=== PATIENT | female | born 1950 | race Caucasian/White ===

== ENCOUNTER 2021-04-01 08:30 | Day surgery (SDC) | payer MEDICARE, SELFPAY ==
[2021-03-25 16:06] VITALS: BMI 23.6
--- NOTE | 2021-03-31 13:00 | HO.ANESPROP2 ---
Documented by User: Gayle Dennison NP 03/31/21 13:01 HPI - Anesthesia Eval Consult details Narrative: 70yo F for Colonoscopy Portacath R chest - chemo for CA of appendix (last dose 03/28/21) PMFSH Past Medical History Medical History (Updated 03/25/21 @ 16:04 by Urvashi Hall, RN) Cancer of appendix COVID-19 vaccine series completed GERD (gastroesophageal reflux disease) History of chemotherapy Port-A-Cath in place Surgical History Surgical History (Updated 03/25/21 @ 16:04 by Urvashi Hall RN) History of esophagogastroduodenoscopy (EGD) Hx laparoscopic cholecystectomy Hx of abdominal surgery Hx of colonoscopy Hx of hysterectomy Social History Social History Are you a primary home care rn to a significant other at home: No Do you presently have visiting nurse or other home services: No Patient Tobacco Use Status: Never used Tobacco Use of substances other than those prescribed or required for medical reasons: No Have you been hit, kicked, punched, or otherwise hurt by someone within the past year? If so, by whom?: No Are you DNR?: No Advance Directives: No Advance Directives Information Provided: No Advance Directives on File: No Recently lost weight without trying: No Eating poorly because of decreased appetite: No Patient : No Meds Allergies Allergy/AdvReac Type Severity Reaction Status Date / Time No Known Allergies Allergy Unverified 03/25/21 15:51 [No Known Allergies*] Home Medications Medication Instructions Recorded Confirmed Last Taken Type lorazepam 1 mg tablet 1 mg PO BEDTIME 03/25/21 03/25/21 Unknown History multivitamin 1 tab PO DAILY 03/25/21 03/25/21 Unknown History polyethylene glycol 3350 17 gram 17 g PO DAILY 03/25/21 03/25/21 Unknown History oral powder packet (Miralax) Exam Exam Date and Time: March 31, 2021 1300 Height,Weight and Vital Signs: Height 5 ft 1 in Weight 56.699 kg Assessment and Plan Assessment Anesthesia Assessment: Chart Reviewed Documented by User: Fabrizio Martinez MD 04/01/21 09:08 [facility] Past Medical History Medical History (Updated 03/25/21 @ 16:04 by Urvashi Hall, JOHNNY) Cancer of appendix COVID-19 vaccine series completed GERD (gastroesophageal reflux disease) History of chemotherapy Port-A-Cath in place Family History Family history of problems with anesthesia: No Surgical History Surgical History (Updated 03/25/21 @ 16:04 by Urvashi Hall, RN) History of esophagogastroduodenoscopy (EGD) Hx laparoscopic cholecystectomy Hx of abdominal surgery Hx of colonoscopy Hx of hysterectomy History of Problems with Anesthesia: No Social History Social History Are you a primary home care rn to a significant other at home: No Do you presently have visiting nurse or other home services: No Patient Tobacco Use Status: Never used Tobacco Use of substances other than those prescribed or required for medical reasons: No Have you been hit, kicked, punched, or otherwise hurt by someone within the past year? If so, by whom?: No Are you DNR?: No Advance Directives: No Advance Directives Information Provided: No Advance Directives on File: No Recently lost weight without trying: No Eating poorly because of decreased appetite: No Patient : No Meds Allergies Allergy/AdvReac Type Severity Reaction Status Date / Time No Known Allergies Allergy Unverified 03/25/21 15:51 [No Known Allergies*] Home Medications Medication Instructions Recorded Confirmed Last Taken Type lorazepam 1 mg tablet 1 mg PO BEDTIME 03/25/21 03/25/21 Unknown History multivitamin 1 tab PO DAILY 03/25/21 03/25/21 Unknown History polyethylene glycol 3350 17 gram 17 g PO DAILY 03/25/21 03/25/21 Unknown History oral powder packet (Miralax) Exam Airway Mallampati Class: II TM Dist: >3cm Neck ROM: Full Loose/Missing/Broken Teeth: No Heart: rrr+[id number] Lungs: cta b/l Assessment and Plan Assessment Anesthesia Assessment: Anesthesia Plan Discussed Final Anesthetic Review Family History of Problems with Anesthesia: No History of Problems with Anesthesia: No NPO: Yes ASA Class: III Final Preanesthetic Review: No Changes in Pt Med Stat, Meds/Allgs Chart Reviewed, Consent Obtained/Reviewed and Anes Risks/Benef Reviewed Patient Risk: Intermediate Procedure Risk: Low Assessment/Block/Sedation in SS: Assess/Block/Sedation-SS Anesthetic Plan Anesthetic Plan: MAC: and Agree w/ Assess. and Plan Disposition: Standard PACU
--- NOTE | 2021-03-31 19:14 | HP_ITS ---
DATE OF SERVICE: 04/01/2021 PROPOSED DATE OF SERVICE: 04/01/2021. 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 She has a history of peritoneal carcinomatosis and underwent surgery at [facility] with hyperthermic intraperitoneal chemotherapy. She has been maintained on chemotherapy every 2 weeks and is scheduled for surgery to remove a liver lesion and lymph nodes, based on most recent imaging. 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 She had upper endoscopy and colonoscopy in November of 2019 and is here for followup colonoscopy. PAST MEDICAL HISTORY: 1. Appendiceal carcinoma with peritoneal carcinomatosis and surgery as above. 2. Hysterectomy. 3. Cholecystectomy. CURRENT MEDICATIONS: Ativan, omeprazole. ALLERGIES: THERE ARE NONE REPORTED. FAMILY HISTORY: Noncontributory. SOCIAL HISTORY: There is no current tobacco, alcohol, or substance abuse. REVIEW OF SYSTEMS: SKIN: No pruritus. HEENT: Negative. CARDIOPULMONARY: No shortness of breath or chest pain. GASTROINTESTINAL: As above. GENITOURINARY: Negative. NEUROPSYCHIATRIC: Negative. PHYSICAL EXAMINATION: lungs: clear heart: normal s1 s2. abdomen: soft, nontender IMPRESSION: Appendiceal carcinoma. PLAN: Colonoscopy. Risks and benefits of the procedure have been discussed with the patient who understands and agrees to proceed. MD MARQUITA Khan/ROSITA / [id number] MTDD
[2021-04-01 08:55] VITALS: BP 139/64; PULSE 79; RESP 16; TEMP 36.6; O2SAT 100
[2021-04-01] MEDS: Lactated Ringers 1,000 ML 100 ML IVCONT (09:05)
--- NOTE | 2021-04-01 09:34 | MHC.SHP ---
Pre-Procedural Eval Section A Date of Service: 04/01/21 The patient is an INPATIENT: No Changes since office visit: No Cold of Flu in the past 2 weeks, No New Medical Problems, No Changes in Medication and No Patient answered all questions The History & Physical has been completed within 30 days and I have reviewed it.: Yes Section B Chief Complaint: neoplasm of appendix Allergies: Allergies Allergy/AdvReac Type Severity Reaction Status Date / Time No Known Allergies Allergy Unverified 03/25/21 15:51 [No Known Allergies*] Plan I have reviewed the history and physical and performed a pertinent physical examination on my patient. No changes have occurred unless specified.
[2021-04-01 10:10] VITALS: BP 86/34; PULSE 67; RESP 16; TEMP 36.2; O2SAT 99
[2021-04-01 10:15] VITALS: BP 108/55; PULSE 68; RESP 16; O2SAT 100
--- NOTE | 2021-04-01 10:17 | PM.OP ---
Brief Operative Note Date of Service: 04/01/21 Pre-op diagnosis: appendiceal carcinoma Post-op diagnosis: same Procedure: colonoscopy Surgeon: Luis Daniel Monaco Anesthesia: MAC Was an Recreation Attendant Supervisor used for this Procedure?: No Estimated blood loss (mL): 0 Pathology: none sent Condition: stable Disposition: PACU
[2021-04-01 10:25] VITALS: BP 104/49; PULSE 65; RESP 16; TEMP 36.2; O2SAT 100
--- NOTE | 2021-04-01 11:41 | OP_ITS ---
SURGEON: Luis Daniel Monaco MD INDICATIONS: Appendiceal carcinoma. PREOPERATIVE DIAGNOSIS: POSTOPERATIVE DIAGNOSIS: PROCEDURE PERFORMED: Colonoscopy to the neoterminal ileum. ESTIMATED BLOOD LOSS: COMPLICATIONS: ANESTHESIA: Monitored anesthesia care. ASSISTANTS: SPECIMENS: DESCRIPTION OF PROCEDURE: History and physical performed. The risks and benefits of the procedure were explained to the patient, and informed consent was obtained. The patient was placed in the left lateral decubitus position. A digital rectal exam was performed and it was found to be normal. The Olympus pediatric video colonoscope was introduced into the rectum and advanced to the ileocolonic anastomosis. Examination was performed. The scope was removed. She tolerated the procedure well and was taken to the recovery area in stable condition. FINDINGS: The neoterminal ileum was normal. There was a widely patent ileocolonic anastomosis at about 60 cm. There was no evidence of stricturing or malignancy. Some staple material was visible. The visualized colonic mucosa was normal without evidence of polyps, masses or ulcers. The quality of the prep was good. There was mild sigmoid diverticulosis. Retroflexed examination showed small internal hemorrhoids. IMPRESSION: Normal colonoscopy. RECOMMENDATIONS: 1. Follow up as needed. 2. Repeat colonoscopy could be considered in 3 years for surveillance purposes. MD MARQUITA Khan/ROSITA / [id number]
== END 2021-04-01 10:45 | disposition home or self-care (01) ==
PROVIDERS: Visit Provider Internal Medicine Gastroenterology
PROC: 0DJD8ZZ Inspection of Lower Intestinal Tract, Via Natural or Artificial Opening Endoscopic (ICD-10-PCS; CPT 45378; principal; 2021-04-01 09:30)
DX: C18.1 Malignant neoplasm of appendix (principal); C78.6 Secondary malignant neoplasm of retroperitoneum and peritoneum; K57.30 Diverticulosis of large intestine without perforation or abscess without bleeding; K64.8 Other hemorrhoids; K21.9 Gastro-esophageal reflux disease without esophagitis; Z79.899 Other long term (current) drug therapy; Z92.21 Personal history of antineoplastic chemotherapy; Z98.0 Intestinal bypass and anastomosis status; Z90.710 Acquired absence of both cervix and uterus; Z90.49 Acquired absence of other specified parts of digestive tract
CPT/HCPCS: 45378; J3010